=== PATIENT | male | born 1940 | race Caucasian/White ===

== ENCOUNTER 2023-10-27 11:38 | Day surgery (SDC) | payer MEDICARE, BC ==
--- NOTE | 2023-10-27 12:10 | NUR ---
PATIENT AMBULATORY TO ROOM 6 AND IS ALERT AND ORIENTED X3. ORIENTED TO ROOM. DUE TO SPOUSE HAVING TESTED FOR COVID AND PATIENT REPORTING A COUGH, RAPID COVID TEST OBTAINED AND PATIENT PLACED IN ISOLATION. PATIENT VOICES UNDERSTANDING OF THIS. STATES THAT HE DID A HOME TEST 10/26/2023 AND IT WAS NEGATIVE. 1237 DR. KWOK WAS NOTIFIED AND AGREES WITH DOING COVID TEST. 1249 LAB CALLED WITH POSITIVE COVID RESULTS. WILL NOTIFY DR. KWOK AND THE SURGERY STAFF. 1250 DR. KWOK IN THE ROOM AND INFORMS THE PATIENT OF THE NEED TO CANCEL SURGERY AND WAIT APPROXIMATELY SIX WEEKS FOR RESCHEDULE. PATIENT VOICES UNDERSTANDING OF THIS. NURSE INFORMED THE SPOUSE AND PATIENT DRESSED. MASK GIVEN TO PATIENT AND TAKEN TO VEHICLE PER WHEELCHAIR AND DISMISSED TO HOME WITH INSTRUCTIONS TO WAIT FOR DR. KWOK'S OFFICE TO NOTIFY THEM OF RESCHEDULE DATE.
== END 2023-10-27 13:00 | disposition home or self-care (01) ==
LOC: SDCO 11:38
DX: N40.1 Benign prostatic hyperplasia with lower urinary tract symptoms (principal); R33.8 Other retention of urine; R35.0 Frequency of micturition; Z53.8 Procedure and treatment not carried out for other reasons

== ENCOUNTER 2023-11-17 13:14 | Day surgery (SDC) | payer MEDICARE, BC ==
[~2023-11-17] VITALS: Ht 177.8 cm; Wt 87.0 kg
[2023-11-17] VITALS (9 sets, daily range): BP systolic 118–155; BP diastolic 58–93; PULSE 76–94; TEMP 97.9–98.3
[~2023-11-17 13:14] MED LIST: LR 1,000 ML IV SCH
[2023-11-17] MEDS ORDERED: Meperidine 50 MG/ML 1 ML VIAL IV PRN ×2 (13:45→15:00)
[2023-11-17] MEDS ORDERED: hydrALAZINE 20 MG/ML 1 ML VIAL IV PRN ×2 (13:45→15:00)
[2023-11-17] MEDS ORDERED: HYDROmorphone 2 MG/1 ML VIAL IV PRN ×2 (13:45→15:00)
[2023-11-17] MEDS ORDERED: fentaNYL 50 MCG/ML 2 ML VIAL IV PRN ×2 (13:45→15:00)
[2023-11-17] MEDS ORDERED: Ondansetron 4 MG/2 ML VIAL IV PRN ×3 (13:45→16:30)
[2023-11-17] MEDS ORDERED: fentaNYL 50 MCG/ML 2 ML VIAL ONE ×2 (13:54→15:35)
[2023-11-17] MEDS ORDERED: Ondansetron 4 MG/2 ML VIAL ONE (13:54)
[2023-11-17] MEDS ORDERED: Lidocaine PF 2% (20 MG/ML) 5 ML VIAL ONE (13:54)
[2023-11-17] MEDS ORDERED: CEPHALEXIN500 M1 PO (14:03)
[2023-11-17] MEDS ORDERED: ZETIA 10MG TAB10 MG PO (14:04)
[2023-11-17] MEDS ORDERED: GLUCOTROL 5M5 MG/TAB PO (14:05)
[2023-11-17] MEDS ORDERED: ACIDOPHILIS PO (14:06)
[2023-11-17] MEDS ORDERED: FLOMAX 0.40.4 MG/CAP PO (14:07)
[2023-11-17] MEDS ORDERED: Lidocaine 2% (20 MG/ML) 20 ML UROJET UR ONE (14:38)
[2023-11-17] MEDS ORDERED: ePHEDrine 50 MG/ML VIAL ONE (14:42)
[2023-11-17] MEDS ORDERED: 1/2 NS 1,000 ML IV SCH (16:30)
[2023-11-17] MEDS ORDERED: NS Irrig Soln 3000 ML SOLN IR PRN (16:30)
[2023-11-17] MEDS ORDERED: Morphine 4 MG/ML VIAL IV PRN (16:30)
[2023-11-17] MEDS ORDERED: Magnes Hydrox (MOM) 80 MG/ML 30 ML CUP PO PRN (16:30)
[2023-11-17] MEDS ORDERED: Hyoscyamine 0.125 MG Sublingual TAB SL PRN ×2 (16:30)
[2023-11-17] MEDS ORDERED: Acetaminophen 325 MG TAB PO PRN (16:30)
[2023-11-17] MEDS ORDERED: oxyCODONE/Acetaminophen 5-325 MG TAB PO PRN (16:30)
[2023-11-17] MEDS ORDERED: Dextrose 50% Water 25 GM/50 ML SYRINGE IV PRN (16:45)
[2023-11-17] MEDS ORDERED: Glucagon 1 MG VIAL IM PRN (16:45)
[2023-11-17] MEDS ORDERED: Dextrose (Glucose) 15 GM (4 x 3.75 GM) Chewable TABLET PACK PO PRN (16:45)
[2023-11-17] MEDS ORDERED: Insulin Aspart (NovoLOG) SQ SCH (17:00)
--- NOTE | 2023-11-17 17:41 | NUR ---
PATIENT BROUGHT TO FLOOR AT APPROXIMATELY 1730. POST OP VITALS RUNNING. POST OP FLUIDS INFUSING INTO IV IN LEFT FA. PATIENT ALERT AND ORIENTED X4 BUT RAMONA WITH BILAT STEWART. CBI RUNNING AT A MODERATE LEVEL WITH OUTPUT JARQUIN RED. PATIENT TOLERATING PO. DINNER ORDERED. ASSESSMENT COMPLETE. CALL LIGHT IN REACH. IN ROOM.
--- NOTE | 2023-11-17 18:20 | NUR ---
PATIENT ALERT AND ORIENTED BUT KEWEENAW. CBI RUNNING AT A MODERATE PACE. PATIENT REPORTS PAIN IN LOWER BACK AND BLADDER, PERCOCET ADMINISTERED FOR PAIN RATING AT 8/10. IV FLUIDS INFUSING INTO LEFT FA AT 60ML/HOUR. PATIENT TOLERATED DINNER, NO N/V. ENCOURAGED TO INCREASE FLUID INTAKE.
--- NOTE | 2023-11-17 19:00 | NUR ---
resting in bed, bedside shift report received from ALFREDO Lopez, CBi infusing at mod to fast rate, urine is light pink to clear,
--- NOTE | 2023-11-17 20:00 | NUR ---
full assessment completed, see intervetions for further info, CBI continues, repositioned for comfort and urine becomes red, then urine clears again,
--- NOTE | 2023-11-17 20:45 | NUR ---
repositioned to other side, he states this helps him feel better
[2023-11-17] MEDS ORDERED: Ezetimibe 10 MG TAB PO SCH (21:00)
[2023-11-17] MEDS ORDERED: Melatonin 3 MG TAB PO PRN (21:00)
--- NOTE | 2023-11-17 21:30 | NUR ---
starting to sleep, CPAP on, hs meds given, CBI continues mod rate and urine is light pink
[2023-11-17] MEDS ORDERED: ceFAZolin 2 G in Water For Injection,Sterile 20 ML IV SCH (22:00)
--- NOTE | 2023-11-17 22:00 | NUR ---
appears to be dozing, arouses easily, CBI continues at mod rate, urine in tubing is pink and appears to be clearing to yellow in tubing
--- NOTE | 2023-11-17 23:00 | NUR ---
CBI continues at mod rate and urine i yellow with some blood tinge in tubing
[2023-11-18] VITALS (14 sets, daily range): BP systolic 126–168; BP diastolic 61–79; PULSE 66–82; TEMP 97.5–99
--- NOTE | 2023-11-18 00:41 | NUR ---
CBI cocntinues to mod rate and urine is mostly yellow intubing with some streaks of red
--- NOTE | 2023-11-18 01:30 | NUR ---
urine remains yellow with streaks of red with CBI infusing at mod rate
--- NOTE | 2023-11-18 02:40 | NUR ---
CBI continues at mod rate and urine remains yellow in tubing
--- NOTE | 2023-11-18 05:04 | NUR ---
called nurse to room thinking his bladder wasn't draining right, urine continues to flow and i light pink now, CBI minimally increased and urine clears quickly to yellow, c/o right knee pain and requeting tylenol, medicated with tylenol 650mg po
--- NOTE | 2023-11-18 06:18 | NUR ---
has slept off and on throughout the night, CBI infusing and urine yellow in tubing
--- NOTE | 2023-11-18 06:41 | NUR ---
bedside shift report given to ALFREDO Conde
--- NOTE | 2023-11-18 08:29 | NUR ---
Patient up to the chair this am. Steady gait to the chair with walker & gaitbelt. rounded this am. Plan of care reviewed. Stat lock applied, foam tape removed. Cath care provided. Breakfast ordered. Blood sugar stable. Vss on room air. Will monitor.
[2023-11-18] MEDS ORDERED: glipiZIDE 5 MG TAB PO SCH (09:00)
--- NOTE | 2023-11-18 10:55 | NUR ---
Senior Copywriter met with patient to discuss discharge planning. Patient lives in [place], [place] with his spouse Santa (ph#[phone]) and goes to the [facility] for primary care. Patient has his medications mailed to him by the [facility]. Patient advised he is able to drive himself to medical appointments and is independent with ADLS. Patient uses a CPAP and no other DME. Patient advised he believes he has completed a DPOA-HC designating his , Santa and son, Shlomo. Discharge Plan: Home
--- NOTE | 2023-11-18 12:15 | NUR ---
Patient sitting up in chair. Dinner ordered. Patient refusing to take Insulin. Reports he does not take insulin and his breakfast was late. Albaro jin
--- NOTE | 2023-11-18 16:31 | NUR ---
Cbi continues to a slow to moderate rate, few clots noted. output remains orange tinged. Blood sugar stable, dinner ordered. Patient grandson visisted this afternoon. Patient up and we ambulated the halls again, with walker, gaitsteady. Will monitor
--- NOTE | 2023-11-18 19:07 | NUR ---
Patient sitting up in chair. Denies needs at this time. Bedside report to Gwen to resume cares.
--- NOTE | 2023-11-18 20:30 | NUR ---
PT A&O X4 SITTING UP IN CHAIR. CBI RUNNING AT SLOW RATE WITH ORANGE OUTPUT & SOME CLOTS PRESENT. PT IS DENYING ANY PAIN. INT TO LEFT FOREARM PATENT. PT TRANSFERED TO BED WITH X1 ASSIST. SCDS & BIPAP ON. CALL LIGHT IN REACH & FALL PRECAUTIONS IN PLACE. PT DENYING FURTHER NEEDS.
--- NOTE | 2023-11-18 22:22 | NUR ---
PT RESTING IN BED WITH EVEN & UNLABORED RESP. CALL LIGHT IN REACH
[2023-11-19 04:04] VITALS: BP 151/70; PULSE 75; TEMP 97.7
[2023-11-19 04:13] VITALS: BP_SYST 151
--- NOTE | 2023-11-19 05:27 | NUR ---
PT SITTING UP IN CHAIR THIS MORNING. DENYING PAIN. MCMAHON TO DD WITH ORANGE OUTPUT & CBI AT SLOW RATE. DENYING FURTHER NEEDS. CALL LIGHT IN REACH & CHAIR ALARM ON.
[2023-11-19 07:29] VITALS: BP 161/85; PULSE 70; TEMP 98.6
[2023-11-19 07:56] VITALS: BP_SYST 161
--- NOTE | 2023-11-19 08:01 | NUR ---
Patient frustrated this am, reports he has been sitting around to much. Patient up and stand by assist to ambulate the entire third floor with walker and gaitbelt. He did well this am, seems stronger than prior day. He reports low back pain this am, tyelnol offered and given. He denies nausea. Breakfast ordered. Drinking adequate fluids. Patient swain to DD with orange tinged output with no clots seen or blood. High fall risk protocol. Call ight in reach. Will monitor.
--- NOTE | 2023-11-19 11:50 | NUR ---
Data: Patient declined Aerospace Products Sales Engineer visit offered to him during Aerospace Products Sales Engineer rounds. Assessment: Patient was seated in his recliner; stated he expects to be discharged today. Plan of Care: Chaplains will remain available as requested by Patient while admitted to this hospital.
[2023-11-19 11:52] VITALS: BP 166/82; PULSE 64; TEMP 97.5
[2023-11-19 11:58] VITALS: BP_SYST 166
--- NOTE | 2023-11-19 12:01 | NUR ---
Patient sitting up in chair. We ambulated halls with gaitbelt and no walker per patient request. He reports not using walker at home, gait not as steady without walker. We did not ambulate as far. Patient offer showered. He did report shower pipes frozen at home, patient thankful for the assist in shower. Patient dressing, Int DC. Lunch ordered. Patient anticipates his grandson taking him home this afternoon.
--- NOTE | 2023-11-19 13:41 | NUR ---
Patient did well with lunch. His grandson here to take him home. Patient given extensive swain education. Patient given hands on instruction on leg bag and night bag. Hygiene discussed and importance stressed. Patient given bag of supplies with alcohol wipes and pack of swain wipes. Patient feels a little unsure about swain bag, but grandson states his mom is an RN and patient has granddaughters who work in healthcare who should be able to help patient. Patient is very active at home and does not want to feel "tied down" to swain bag. We reviewed medication list and follow up appt. Patient made aware to call with any questions and or concerns. Patient wheeled out with all belongigns, his grandson taking him home.
== END 2023-11-19 13:50 | disposition home or self-care (01) ==
LOC: SDCO 13:14 → SURG 17:22 → SDCO 11-19 13:50
DX: N40.1 Benign prostatic hyperplasia with lower urinary tract symptoms (principal); R35.0 Frequency of micturition; R33.8 Other retention of urine; Z86.16 Personal history of COVID-19
CPT/HCPCS: OP; J0690; J1815; J2405; J2704; J3010; J7120